=== PATIENT | female | born 1945 | race Caucasian/White ===

== ENCOUNTER 2021-11-17 11:44 | Inpatient (IN) | payer OTHER, MEDICARE ==
[2021-11-17 12:02] LABS: Actual Bicarbonate (HCO3a) 22.1 mEq/L (22-28); Analyzer IN Cardio ER; CO2 Tension 35.7 mmHg (35.0-45.0); Calcium, Ionized (arterial) 1.11 mmol/L (1.12-1.30); Carboxyhemoglobin (COHb) 0.3 gm% (0.0-3.0); Hemoglobin (Hb) 12.8 g/dL (12.0-16.0); O2 Tension (PaO2), arterial 239.2 mmHg (> 70.0); Potassium - ABG Lab 3.82 mmol/L (3.70-5.30); pH, Arterial 7.41 (7.35-7.45)
[2021-11-17 12:09] LABS: ALV-art Gradient 72.675 mmHg (0-20); Puncture Site RBA
[2021-11-17] MEDS ORDERED: fentaNYL Citrate/PF 2,000 MCG in Sodium Chloride 0.9% 60 ML IV SCH (12:15)
[2021-11-17 12:23] LABS: Hemoglobin 12.3 g/dL (12.0-16.0); Mean Corpuscular HGB CONC 32.6 g/dL (32.0-36.0); Mean Corpuscular Hemoglobin 30.1 pg (27.0-31.0); Mean Corpuscular Volume 92.4 fL (78.0-98.0); Mean Platelet Volume 9.2 fL (7.4-10.4); Platelet Count 164 thou/uL (130-400); RBC Distribution Width 12.2 % (11.5-14.5); Red Blood Cell (RBC) Count 4.08 mill/uL (4.20-5.40)
[2021-11-17 12:39] LABS: Band 36 % (5-11); MDiff Complete? YES; Metamyelocyte 3 % (0-0); Monocytes 3 % (0-10); Neutrophil 58 % (42-75); Platelet Morphology Comment Appears Adequate; RBC Morphology Normal
[2021-11-17 12:46] LABS: ALT (SGPT) 30 U/L (8-55); AST (SGOT) 40 U/L (5-34); Albumin 3.3 g/dL (3.4-4.8); Alkaline Phosphatase 96 U/L (40-110); Anion Gap 12 mmol/L (10-20); BUN (Urea Nitrogen) 35 mg/dL (9.8-20.1); Bilirubin, Total 0.4 mg/dL (0.2-1.2); Calc. Creatinine Clearance 0 mL/min (70-130); Calcium 8.3 mg/dL (7.8-10.44); Carbon Dioxide 23 mmol/L (23-31); Chloride 107 mmol/L (98-107); Estimated GFR 58; Globulin 2.4 g/dL (2.4-3.5); Glucose 159 mg/dL (83-110); Potassium 3.9 mmol/L (3.5-5.1); Protein, Total 5.7 g/dL (5.8-8.1); Sodium 138 mmol/L (136-145)
[2021-11-17] MEDS ORDERED: Ondansetron PF 4 MG/2 ML Vial IVP PRN (13:25)
[2021-11-17] MEDS ORDERED: Electrolyte Replacement Protocol 1 EACH IVPB ONE (13:28)
[2021-11-17] MEDS ORDERED: Ventilator Sedation Protocol 1 EACH FS SCH (13:30)
[2021-11-17] MEDS ORDERED: Chlorhexidine Gluconate 15 ML UDCUP SSP ONE (14:14)
[2021-11-17] MEDS ORDERED: Lidocaine 1% (PF) 30 ML VIAL ONE (14:14)
[2021-11-17] MEDS ORDERED: EPINEPHrine 1 MG/ML AMP ONE (14:14)
[2021-11-17] MEDS ORDERED: Bupivacaine/Epinephrine 0.25% 30 ML VIAL ONE (14:14)
[2021-11-17] MEDS ORDERED: Lidocaine 0.5%/Epinephrine 1:200,000 50 ml Vial ONE (14:21)
[2021-11-17] MEDS ORDERED: Fentanyl BOLUS 250 ML IVPB PRN (14:30)
[2021-11-17] MEDS ORDERED: Clindamycin/D5W 900 MG in Premix Bag 1 BAG IVPB SCH (14:30)
[2021-11-17] MEDS ORDERED: DISCONTINUE PREVIOUS NARCOTIC PAIN MEDICATIONS AND BENZODIAZEPINES FS SCH (14:30)
[2021-11-17] MEDS ORDERED: Propofol BOLUS 1,000 MG/100 ML VIAL IV PRN (14:30)
[2021-11-17] MEDS ORDERED: fentaNYL Citrate/PF 100 MCG/2 ML SYRINGE ONE (14:34)
[2021-11-17] MEDS ORDERED: Midazolam HCl 2 mg/2 ml Vial ONE (14:34)
[2021-11-17] MEDS ORDERED: Lidocaine 1% PF 5 ML VIAL ONE (14:48)
[2021-11-17] MEDS ORDERED: PROPOFOL 200 MG/20 ML VIAL ONE (14:48)
[2021-11-17] MEDS ORDERED: Rocuronium Bromide 10 MG/ML (10ML VIAL) ONE (14:48)
[2021-11-17] MEDS ORDERED: Phenylephrine 10 MG/ML VIAL ONE (14:48)
[2021-11-17] MEDS ORDERED: Esmolol 100 MG/10 ML VIAL ONE (14:48)
[2021-11-17] MEDS ORDERED: Clindamycin/D5W 900 mg/50 ml Premix Bag ONE (15:06)
[2021-11-17] MEDS ORDERED: Ketamine 50 MG/ML (10ML VIAL) ONE (15:49)
[2021-11-17] MEDS: Lactated Ringer's 1,000 ML IV SCH ×2 (16:17→23:53)
[2021-11-17] MEDS: cefTRIAXone\\ROCEPHIN 2 GM in Sodium Chloride 0.9% 100 ML IVPB SCH (16:17)
[2021-11-17] MEDS: Propofol 1,000 MG/100 ML VIAL IV PRN (16:18)
[2021-11-17] MEDS: Clindamycin/D5W 900 MG in Premix Bag 1 BAG IVPB SCH (22:14)
[2021-11-17] MEDS: Chlorhexidine Gluconate 15 ML UDCUP SSP SCH (22:14)
[2021-11-17] MEDS: Famotidine/PF 20 mg/2ml Vial SLOW IVP SCH (22:14)
[2021-11-18] MEDS: Propofol 1,000 MG/100 ML VIAL IV PRN ×4 (00:29→23:16)
[2021-11-18] MEDS: Lactated Ringer's 1,000 ML IV SCH ×3 (00:29→17:46)
[2021-11-18 04:25] LABS: Anion Gap 15 mmol/L (10-20); BUN (Urea Nitrogen) 30 mg/dL (9.8-20.1); Calc. Creatinine Clearance 65 mL/min (70-130); Calcium 8.8 mg/dL (7.8-10.44); Carbon Dioxide 21 mmol/L (23-31); Chloride 109 mmol/L (98-107); Estimated GFR 77; Glucose 124 mg/dL (83-110); Potassium 3.5 mmol/L (3.5-5.1); Sodium 141 mmol/L (136-145)
[2021-11-18 04:46] LABS: Band 35 % (5-11); Hemoglobin 11.1 g/dL (12.0-16.0); Lymphocytes 3 % (21-51); MDiff Complete? YES; Mean Corpuscular HGB CONC 32.7 g/dL (32.0-36.0); Mean Corpuscular Hemoglobin 30.3 pg (27.0-31.0); Mean Corpuscular Volume 92.8 fL (78.0-98.0); Mean Platelet Volume 9.4 fL (7.4-10.4); Monocytes 3 % (0-10); Neutrophil 59 % (42-75); Platelet Count 153 thou/uL (130-400); Red Blood Cell (RBC) Count 3.66 mill/uL (4.20-5.40); White Blood Cell (WBC) Count 22.1 thou/uL (4.8-10.8)
[2021-11-18] MEDS: Morphine 4 MG/ML VIAL SLOW IVP PRN ×2 (04:53→20:20)
[2021-11-18 05:43] LABS: Magnesium 2.3 mg/dL (1.6-2.6)
[2021-11-18] MEDS: Clindamycin/D5W 900 MG in Premix Bag 1 BAG IVPB SCH ×3 (06:37→21:01)
[2021-11-18 07:11] LABS: Actual Bicarbonate (HCO3a) 21.2 mEq/L (22-28); Base Excess (BEa) -2.3 mEq/L (-2.0 to +3.0); CO2 Tension 32.1 mmHg (35.0-45.0); Calcium, Ionized (arterial) 1.11 mmol/L (1.12-1.30); Carboxyhemoglobin (COHb) 0.3 gm% (0.0-3.0); Hemoglobin (Hb) 11.7 g/dL (12.0-16.0); O2 Tension (PaO2), arterial 146.5 mmHg (> 70.0); Potassium - ABG Lab 3.49 mmol/L (3.70-5.30); Puncture Site RRA; pH, Arterial 7.44 (7.35-7.45)
[2021-11-18 07:12] LABS: ALV-art Gradient 98.575 mmHg (0-20)
[2021-11-18] MEDS: Famotidine/PF 20 mg/2ml Vial SLOW IVP SCH ×2 (08:24→21:01)
[2021-11-18] MEDS: Enoxaparin Sodium 40 MG/0.4 ML SYRINGE SC SCH (08:24)
[2021-11-18] MEDS: Chlorhexidine Gluconate 15 ML UDCUP SSP SCH ×2 (08:24→21:01)
[2021-11-18] MEDS ORDERED: Iopamidol-370 76% 500 ML 1 ML ONE (14:04)
[2021-11-18] MEDS: cefTRIAXone\\ROCEPHIN 2 GM in Sodium Chloride 0.9% 100 ML IVPB SCH (16:18)
[2021-11-18] MEDS ORDERED: Metoprolol Tartrate 25 MG TAB PO SCH (21:45)
[2021-11-18] MEDS ORDERED: Fentanyl CADD 100 ML ONE (21:51)
[2021-11-18] MEDS: Fentanyl CADD 100 ML IV SCH (21:59)
[2021-11-19] MEDS: Propofol 1,000 MG/100 ML VIAL IV PRN ×3 (03:57→20:00)
[2021-11-19] MEDS: Clindamycin/D5W 900 MG in Premix Bag 1 BAG IVPB SCH ×3 (05:48→23:58)
[2021-11-19 06:50] LABS: #Basophils 0.1 thou/uL (0.0-0.2); #Lymphocytes 1.1 thou/uL (1.20-3.40); #Monocytes 1.2 thou/uL (0.11-0.59); %Basophils 0.3 % (0.0-1.0); %Eosinophils 0.1 % (0.0-10.0); %Monocytes 5.3 % (0.0-10.0); %Neutrophils 89.4 % (42.0-75.0); Hemoglobin 11.5 g/dL (12.0-16.0); Mean Corpuscular HGB CONC 31.6 g/dL (32.0-36.0); Mean Corpuscular Hemoglobin 30.5 pg (27.0-31.0); Mean Corpuscular Volume 96.5 fL (78.0-98.0); Mean Platelet Volume 10.7 fL (7.4-10.4); Platelet Count 147 thou/uL (130-400); RBC Distribution Width 12.6 % (11.5-14.5); Red Blood Cell (RBC) Count 3.76 mill/uL (4.20-5.40); White Blood Cell (WBC) Count 22.4 thou/uL (4.8-10.8)
[2021-11-19 07:27] LABS: Calcium 8.7 mg/dL (7.8-10.44); Chloride 110 mmol/L (98-107); Potassium 4.2 mmol/L (3.5-5.1); Sodium 140 mmol/L (136-145)
[2021-11-19 07:28] LABS: Glucose 64 mg/dL (83-110)
[2021-11-19 07:29] LABS: Anion Gap 19 mmol/L (10-20); Carbon Dioxide 15 mmol/L (23-31)
[2021-11-19 07:31] LABS: Calc. Creatinine Clearance 75 mL/min (70-130); Estimated GFR 89
[2021-11-19 07:32] LABS: BUN (Urea Nitrogen) 27 mg/dL (9.8-20.1)
[2021-11-19 07:38] LABS: Base Excess (BEa) -2.1 mEq/L (-2.0 to +3.0); CO2 Tension 35.6 mmHg (35.0-45.0); Calcium, Ionized (arterial) 1.18 mmol/L (1.12-1.30); Carboxyhemoglobin (COHb) 0.2 gm% (0.0-3.0); Hemoglobin (Hb) 12.8 g/dL (12.0-16.0); Potassium - ABG Lab 3.28 mmol/L (3.70-5.30); pH, Arterial 7.41 (7.35-7.45)
[2021-11-19 07:45] LABS: Puncture Site LRA
[2021-11-19] MEDS: Sodium Chloride 0.45% 1,000 ML IV SCH ×2 (08:54→22:55)
[2021-11-19] MEDS: Famotidine/PF 20 mg/2ml Vial SLOW IVP SCH ×2 (08:56→22:53)
[2021-11-19] MEDS: Chlorhexidine Gluconate 15 ML UDCUP SSP SCH ×2 (08:56→22:53)
[2021-11-19] MEDS: Enoxaparin Sodium 40 MG/0.4 ML SYRINGE SC SCH (08:56)
[2021-11-19] MEDS: Metoprolol Tartrate 25 MG TAB PO SCH ×3 (08:56→23:18)
[2021-11-19] MEDS: cefTRIAXone\\ROCEPHIN 2 GM in Sodium Chloride 0.9% 100 ML IVPB SCH (14:30)
[2021-11-19] MEDS ORDERED: Bacitracin Zinc Ointment 30 gm TUBE ONE (17:28)
[2021-11-19] MEDS ORDERED: Chlorhexidine Gluconate 15 ML UDCUP SSP ONE (17:28)
[2021-11-19] MEDS ORDERED: Bupivacaine/Epinephrine 0.25% 30 ML VIAL ONE (17:28)
[2021-11-19] MEDS ORDERED: Phenylephrine 10 MG/ML VIAL ONE (18:05)
[2021-11-19] MEDS ORDERED: Rocuronium Bromide 10 MG/ML (10ML VIAL) ONE (18:05)
[2021-11-19] MEDS ORDERED: ePHEDrine 50 MG/ML VIAL ONE (18:05)
[2021-11-19] MEDS ORDERED: fentaNYL Citrate/PF 100 MCG/2 ML SYRINGE ONE (18:15)
[2021-11-19] MEDS: Midazolam HCl 2 mg/2 ml Vial SLOW IVP PRN (20:33)
[2021-11-20] MEDS: Fentanyl CADD 100 ML IV SCH (04:00)
[2021-11-20 04:17] LABS: #Eosinphils 0.1 thou/uL (0.0-0.7); #Lymphocytes 1.3 thou/uL (1.20-3.40); #Monocytes 0.9 thou/uL (0.11-0.59); #Neutrophils 7.5 thou/uL (1.40-6.50); %Basophils 0.5 % (0.0-1.0); %Eosinophils 0.9 % (0.0-10.0); %Lymphocytes 13.1 % (21.0-51.0); %Neutrophils 76.5 % (42.0-75.0); Hemoglobin 12.3 g/dL (12.0-16.0); Mean Corpuscular Hemoglobin 30.5 pg (27.0-31.0); Mean Corpuscular Volume 92.5 fL (78.0-98.0); Mean Platelet Volume 9.5 fL (7.4-10.4); Platelet Count 138 thou/uL (130-400); RBC Distribution Width 12.3 % (11.5-14.5); Red Blood Cell (RBC) Count 4.04 mill/uL (4.20-5.40); White Blood Cell (WBC) Count 9.8 thou/uL (4.8-10.8)
[2021-11-20] MEDS: Midazolam HCl 2 mg/2 ml Vial SLOW IVP PRN (04:25)
[2021-11-20] MEDS: Propofol 1,000 MG/100 ML VIAL IV PRN ×3 (04:25→18:06)
[2021-11-20 04:33] LABS: Anion Gap 15 mmol/L (10-20); BUN (Urea Nitrogen) 24 mg/dL (9.8-20.1); Calc. Creatinine Clearance 80 mL/min (70-130); Calcium 8.6 mg/dL (7.8-10.44); Carbon Dioxide 19 mmol/L (23-31); Chloride 108 mmol/L (98-107); Estimated GFR 92; Glucose 75 mg/dL (83-110); Potassium 3.3 mmol/L (3.5-5.1); Sodium 139 mmol/L (136-145)
[2021-11-20] MEDS: Clindamycin/D5W 900 MG in Premix Bag 1 BAG IVPB SCH ×3 (06:31→21:43)
[2021-11-20 07:38] LABS: Actual Bicarbonate (HCO3a) 24.2 mEq/L (22-28); Base Excess (BEa) -0.3 mEq/L (-2.0 to +3.0); CO2 Tension 39.3 mmHg (35.0-45.0); Calcium, Ionized (arterial) 1.11 mmol/L (1.12-1.30); Carboxyhemoglobin (COHb) 0.2 gm% (0.0-3.0); Hemoglobin (Hb) 11.7 g/dL (12.0-16.0); O2 Tension (PaO2), arterial 105.3 mmHg (> 70.0); Potassium - ABG Lab 3.03 mmol/L (3.70-5.30); pH, Arterial 7.41 (7.35-7.45)
[2021-11-20] MEDS ORDERED: Potassium Chloride 40 MEQ in Premix Bag 1 BAG IVPB SCH (07:45)
[2021-11-20 07:49] LABS: Puncture Site RRA
[2021-11-20 07:51] LABS: ALV-art Gradient 59.475 mmHg (0-20)
[2021-11-20] MEDS: Famotidine/PF 20 mg/2ml Vial SLOW IVP SCH ×2 (09:08→20:52)
[2021-11-20] MEDS: Chlorhexidine Gluconate 15 ML UDCUP SSP SCH ×2 (09:08→20:52)
[2021-11-20] MEDS: Enoxaparin Sodium 40 MG/0.4 ML SYRINGE SC SCH (09:08)
[2021-11-20] MEDS: Metoprolol Tartrate 25 MG TAB PO SCH ×3 (09:12→20:52)
[2021-11-20] MEDS: Sodium Chloride 0.45% 1,000 ML IV SCH (13:50)
[2021-11-20] MEDS: cefTRIAXone\\ROCEPHIN 2 GM in Sodium Chloride 0.9% 100 ML IVPB SCH (13:51)
[2021-11-20] MEDS ORDERED: Dextrose 5 %-0.45 % NaCl 1,000 ML IV SCH (14:30)
[2021-11-20] MEDS: Senokot S 8.6-50 MG TAB PER TUBE SCH (20:52)
[2021-11-21] MEDS ORDERED: Dextrose 5 %-0.45 % NaCl 1,000 ML IV SCH (00:01)
[2021-11-21] MEDS: Propofol 1,000 MG/100 ML VIAL IV PRN ×2 (01:00→06:29)
[2021-11-21 03:40] LABS: Anion Gap 12 mmol/L (10-20); BUN (Urea Nitrogen) 16 mg/dL (9.8-20.1); Calc. Creatinine Clearance 83 mL/min (70-130); Calcium 8.2 mg/dL (7.8-10.44); Carbon Dioxide 22 mmol/L (23-31); Chloride 108 mmol/L (98-107); Estimated GFR 93; Glucose 145 mg/dL (83-110); Magnesium 2.1 mg/dL (1.6-2.6); Potassium 3.4 mmol/L (3.5-5.1); Sodium 139 mmol/L (136-145)
[2021-11-21 03:53] LABS: Band 4 % (5-11); Hemoglobin 10.5 g/dL (12.0-16.0); Hypochromia SLIGHT = 6-15 cells (100X) (0-5/hpf); Lymphocytes 20 % (21-51); MDiff Complete? YES; Mean Corpuscular HGB CONC 33.4 g/dL (32.0-36.0); Mean Corpuscular Hemoglobin 31.1 pg (27.0-31.0); Mean Corpuscular Volume 93.1 fL (78.0-98.0); Mean Platelet Volume 9.5 fL (7.4-10.4); Monocytes 20 % (0-10); Neutrophil 56 % (42-75); Platelet Count 148 thou/uL (130-400); Platelet Morphology Comment Appears Adequate; RBC Distribution Width 12.3 % (11.5-14.5); Red Blood Cell (RBC) Count 3.39 mill/uL (4.20-5.40); White Blood Cell (WBC) Count 7.6 thou/uL (4.8-10.8)
[2021-11-21] MEDS: Sodium Chloride 0.45% 1,000 ML IV SCH ×2 (06:13→13:12)
[2021-11-21] MEDS: Clindamycin/D5W 900 MG in Premix Bag 1 BAG IVPB SCH ×3 (06:29→22:43)
[2021-11-21] MEDS: Senokot S 8.6-50 MG TAB PER TUBE SCH ×3 (06:36→20:47)
[2021-11-21] MEDS ORDERED: Fentanyl CADD 100 ML ONE (06:45)
[2021-11-21] MEDS: Fentanyl CADD 100 ML IV SCH (07:01)
[2021-11-21] MEDS: Enoxaparin Sodium 40 MG/0.4 ML SYRINGE SC SCH (08:55)
[2021-11-21] MEDS: Famotidine/PF 20 mg/2ml Vial SLOW IVP SCH ×2 (08:55→20:52)
[2021-11-21] MEDS: Chlorhexidine Gluconate 15 ML UDCUP SSP SCH ×2 (08:55→20:52)
[2021-11-21] MEDS: Polyethylene Glycol 3350 17 GM Packet PER TUBE SCH (10:34)
[2021-11-21] MEDS: Metoprolol Tartrate 25 MG TAB PO SCH ×2 (10:34→20:52)
[2021-11-21] MEDS: Potassium Chloride 20 MEQ TAB PO SCH ×2 (10:37→22:44)
[2021-11-21] MEDS ORDERED: Dexamethasone 10 MG in Sodium Chloride 0.9% 50 ML IVPB SCH (11:45)
[2021-11-21] MEDS ORDERED: Amlodipine 5 MG TAB PER TUBE SCH (12:30)
[2021-11-21] MEDS ORDERED: Dexamethasone 10 MG/ML VIAL SLOW IVP SCH (12:45)
[2021-11-21] MEDS: cefTRIAXone\\ROCEPHIN 2 GM in Sodium Chloride 0.9% 100 ML IVPB SCH (14:37)
[2021-11-21] MEDS: Dexamethasone 4 mg/ml Vial SLOW IVP SCH ×2 (17:46→23:29)
[2021-11-22 03:54] LABS: Anion Gap 13 mmol/L (10-20); BUN (Urea Nitrogen) 16 mg/dL (9.8-20.1); Calc. Creatinine Clearance 89 mL/min (70-130); Calcium 8.7 mg/dL (7.8-10.44); Carbon Dioxide 24 mmol/L (23-31); Chloride 106 mmol/L (98-107); Estimated GFR 94; Glucose 165 mg/dL (83-110); Potassium 4.7 mmol/L (3.5-5.1); Sodium 138 mmol/L (136-145)
[2021-11-22] MEDS: Sodium Chloride 0.45% 1,000 ML IV SCH (03:58)
[2021-11-22 04:12] LABS: Hemoglobin 10.7 g/dL (12.0-16.0); Mean Corpuscular HGB CONC 32.4 g/dL (32.0-36.0); Mean Corpuscular Hemoglobin 30.2 pg (27.0-31.0); Mean Corpuscular Volume 93.2 fL (78.0-98.0); Mean Platelet Volume 9.8 fL (7.4-10.4); Platelet Count 159 thou/uL (130-400); RBC Distribution Width 12.1 % (11.5-14.5); Red Blood Cell (RBC) Count 3.53 mill/uL (4.20-5.40); White Blood Cell (WBC) Count 9.7 thou/uL (4.8-10.8)
[2021-11-22 04:13] LABS: Band 4 % (5-11); Lymphocytes 9 % (21-51); MDiff Complete? YES; Metamyelocyte 1 % (0-0); Neutrophil 86 % (42-75); Platelet Morphology Comment Appears Adequate; RBC Morphology Normal
[2021-11-22] MEDS: Clindamycin/D5W 900 MG in Premix Bag 1 BAG IVPB SCH ×3 (06:17→21:39)
[2021-11-22] MEDS: Dexamethasone 4 mg/ml Vial SLOW IVP SCH ×3 (06:18→18:30)
[2021-11-22] MEDS: Amlodipine 5 MG TAB PER TUBE SCH (08:36)
[2021-11-22] MEDS: Enoxaparin Sodium 40 MG/0.4 ML SYRINGE SC SCH (08:36)
[2021-11-22] MEDS: Chlorhexidine Gluconate 15 ML UDCUP SSP SCH ×2 (08:37→21:38)
[2021-11-22] MEDS: Metoprolol Tartrate 25 MG TAB PO SCH ×2 (08:37→21:39)
[2021-11-22] MEDS: Polyethylene Glycol 3350 17 GM Packet PER TUBE SCH (08:38)
[2021-11-22] MEDS: Senokot S 8.6-50 MG TAB PER TUBE SCH ×2 (08:39→21:39)
[2021-11-22] MEDS: Famotidine/PF 20 mg/2ml Vial SLOW IVP SCH ×2 (08:47→21:38)
[2021-11-22] MEDS: Potassium Bicarbonate/Cit Ac 20 MEQ TAB PER TUBE SCH ×3 (11:57→21:39)
[2021-11-22] MEDS: cefTRIAXone\\ROCEPHIN 2 GM in Sodium Chloride 0.9% 100 ML IVPB SCH (15:00)
[2021-11-22] MEDS: Fentanyl CADD 100 ML IV SCH (19:18)
[2021-11-22] MEDS: Potassium Chloride 20 MEQ TAB PO SCH (21:25)
[2021-11-23] MEDS: Dexamethasone 4 mg/ml Vial SLOW IVP SCH (00:48)
[2021-11-23] MEDS: Sodium Chloride 0.45% 1,000 ML IV SCH (04:46)
[2021-11-23] MEDS: Clindamycin/D5W 900 MG in Premix Bag 1 BAG IVPB SCH ×3 (05:04→21:33)
[2021-11-23 05:13] LABS: Mean Corpuscular HGB CONC 32.5 g/dL (32.0-36.0); Mean Corpuscular Volume 92.4 fL (78.0-98.0); Mean Platelet Volume 9.8 fL (7.4-10.4); Platelet Count 217 thou/uL (130-400); RBC Distribution Width 12.3 % (11.5-14.5); Red Blood Cell (RBC) Count 3.67 mill/uL (4.20-5.40); White Blood Cell (WBC) Count 14.7 thou/uL (4.8-10.8)
[2021-11-23 05:26] LABS: Anion Gap 12 mmol/L (10-20); BUN (Urea Nitrogen) 24 mg/dL (9.8-20.1); Calc. Creatinine Clearance 85 mL/min (70-130); Calcium 8.7 mg/dL (7.8-10.44); Carbon Dioxide 26 mmol/L (23-31); Chloride 105 mmol/L (98-107); Estimated GFR 93; Glucose 147 mg/dL (83-110); Magnesium 2.3 mg/dL (1.6-2.6); Potassium 4.9 mmol/L (3.5-5.1); Sodium 138 mmol/L (136-145)
[2021-11-23 05:39] LABS: Band 11 % (5-11); Lymphocytes 6 % (21-51); MDiff Complete? YES; Monocytes 9 % (0-10); Neutrophil 74 % (42-75)
[2021-11-23] MEDS: Enoxaparin Sodium 40 MG/0.4 ML SYRINGE SC SCH (09:06)
[2021-11-23] MEDS: Famotidine/PF 20 mg/2ml Vial SLOW IVP SCH ×2 (09:06→21:30)
[2021-11-23] MEDS: Amlodipine 5 MG TAB PER TUBE SCH (09:06)
[2021-11-23] MEDS: Chlorhexidine Gluconate 15 ML UDCUP SSP SCH ×2 (09:06→21:32)
[2021-11-23] MEDS: Polyethylene Glycol 3350 17 GM Packet PER TUBE SCH (09:07)
[2021-11-23] MEDS: Senokot S 8.6-50 MG TAB PER TUBE SCH ×2 (09:07→21:34)
[2021-11-23] MEDS: Metoprolol Tartrate 25 MG TAB PO SCH ×2 (09:07→21:32)
[2021-11-23] MEDS: Loperamide HCl 2 MG CAP PO PRN ×2 (12:18→21:37)
[2021-11-23] MEDS ORDERED: LACTINEX 1 TAB PO SCH (13:00)
[2021-11-23] MEDS: Floranex 1 GM Packet PO SCH ×3 (13:42→21:38)
[2021-11-23] MEDS: cefTRIAXone\\ROCEPHIN 2 GM in Sodium Chloride 0.9% 100 ML IVPB SCH (14:37)
[2021-11-23 14:38] LABS: Fungus Stain Final report (.)
[2021-11-23 14:41] VITALS: BMI 23.3
[2021-11-24] MEDS: Sodium Chloride 0.45% 1,000 ML IV SCH (03:51)
[2021-11-24] MEDS: Clindamycin/D5W 900 MG in Premix Bag 1 BAG IVPB SCH ×3 (05:04→22:06)
[2021-11-24 05:36] LABS: #Eosinphils 0.1 thou/uL (0.0-0.7); #Lymphocytes 1.8 thou/uL (1.20-3.40); #Monocytes 0.8 thou/uL (0.11-0.59); %Eosinophils 0.7 % (0.0-10.0); %Lymphocytes 20.8 % (21.0-51.0); %Monocytes 8.7 % (0.0-10.0); %Neutrophils 69.8 % (42.0-75.0); Hemoglobin 11.1 g/dL (12.0-16.0); Mean Corpuscular HGB CONC 33.4 g/dL (32.0-36.0); Mean Corpuscular Hemoglobin 30.3 pg (27.0-31.0); Mean Corpuscular Volume 90.8 fL (78.0-98.0); Mean Platelet Volume 9.2 fL (7.4-10.4); Platelet Count 235 thou/uL (130-400); RBC Distribution Width 12.2 % (11.5-14.5); Red Blood Cell (RBC) Count 3.65 mill/uL (4.20-5.40); White Blood Cell (WBC) Count 8.6 thou/uL (4.8-10.8)
[2021-11-24 05:54] LABS: Anion Gap 13 mmol/L (10-20); BUN (Urea Nitrogen) 21 mg/dL (9.8-20.1); Calc. Creatinine Clearance 76 mL/min (70-130); Calcium 8.9 mg/dL (7.8-10.44); Carbon Dioxide 27 mmol/L (23-31); Chloride 107 mmol/L (98-107); Estimated GFR 91; Glucose 79 mg/dL (83-110); Potassium 3.8 mmol/L (3.5-5.1); Sodium 143 mmol/L (136-145)
[2021-11-24] MEDS: Floranex 1 GM Packet PO SCH ×4 (08:08→20:34)
[2021-11-24] MEDS: Amlodipine 5 MG TAB PER TUBE SCH (08:09)
[2021-11-24] MEDS: Enoxaparin Sodium 40 MG/0.4 ML SYRINGE SC SCH (08:09)
[2021-11-24] MEDS: Chlorhexidine Gluconate 15 ML UDCUP SSP SCH ×2 (08:09→20:32)
[2021-11-24] MEDS: Famotidine/PF 20 mg/2ml Vial SLOW IVP SCH ×2 (08:09→20:32)
[2021-11-24] MEDS: Metoprolol Tartrate 25 MG TAB PO SCH ×2 (08:10→20:32)
[2021-11-24] MEDS: Polyethylene Glycol 3350 17 GM Packet PER TUBE SCH (08:30)
[2021-11-24] MEDS: Senokot S 8.6-50 MG TAB PER TUBE SCH ×2 (08:31→22:05)
[2021-11-24] MEDS: Amlodipine 5 MG TAB PO SCH (09:38)
[2021-11-24] MEDS: Folic Acid 1 MG TAB PO SCH (09:47)
[2021-11-24] MEDS: Dextrose 5 % And 0.9 % NaCl 1,000 ML IV SCH (09:48)
[2021-11-24] MEDS: Acetaminophen 325 MG TAB PO PRN ×2 (11:05→17:15)
[2021-11-24 12:09] LABS: Fungus Stain Final report (.)
[2021-11-24] MEDS: cefTRIAXone\\ROCEPHIN 2 GM in Sodium Chloride 0.9% 100 ML IVPB SCH (14:44)
[2021-11-25] MEDS: Clindamycin/D5W 900 MG in Premix Bag 1 BAG IVPB SCH (05:17)
[2021-11-25] MEDS: Levothyroxine Sodium 100 MCG TAB PO SCH (05:18)
[2021-11-25 05:51] LABS: #Eosinphils 0.1 thou/uL (0.0-0.7); #Lymphocytes 1.2 thou/uL (1.20-3.40); #Monocytes 0.7 thou/uL (0.11-0.59); #Neutrophils 6.8 thou/uL (1.40-6.50); %Eosinophils 0.7 % (0.0-10.0); %Monocytes 7.6 % (0.0-10.0); %Neutrophils 77.7 % (42.0-75.0); Hemoglobin 11.2 g/dL (12.0-16.0); Mean Corpuscular HGB CONC 32.8 g/dL (32.0-36.0); Mean Corpuscular Hemoglobin 30.1 pg (27.0-31.0); Mean Corpuscular Volume 91.5 fL (78.0-98.0); Mean Platelet Volume 8.9 fL (7.4-10.4); Platelet Count 257 thou/uL (130-400); RBC Distribution Width 12.2 % (11.5-14.5); Red Blood Cell (RBC) Count 3.71 mill/uL (4.20-5.40); White Blood Cell (WBC) Count 8.8 thou/uL (4.8-10.8)
[2021-11-25 06:14] LABS: ALT (SGPT) 19 U/L (8-55); AST (SGOT) 17 U/L (5-34); Alkaline Phosphatase 85 U/L (40-110); Anion Gap 13 mmol/L (10-20); BUN (Urea Nitrogen) 12 mg/dL (9.8-20.1); Bilirubin, Direct 0.1 mg/dL (0.1-0.3); Bilirubin, Total 0.4 mg/dL (0.2-1.2); Calc. Creatinine Clearance 69 mL/min (70-130); Calcium 8.8 mg/dL (7.8-10.44); Carbon Dioxide 26 mmol/L (23-31); Chloride 107 mmol/L (98-107); Estimated GFR 86; Glucose 89 mg/dL (83-110); Potassium 3.5 mmol/L (3.5-5.1); Sodium 142 mmol/L (136-145)
[2021-11-25] MEDS: Floranex 1 GM Packet PO SCH ×4 (08:18→21:05)
[2021-11-25] MEDS: Amlodipine 5 MG TAB PO SCH (08:18)
[2021-11-25] MEDS: Famotidine/PF 20 mg/2ml Vial SLOW IVP SCH ×2 (08:19→21:06)
[2021-11-25] MEDS: Folic Acid 1 MG TAB PO SCH (08:19)
[2021-11-25] MEDS: Chlorhexidine Gluconate 15 ML UDCUP SSP SCH ×2 (08:19→21:06)
[2021-11-25] MEDS: Enoxaparin Sodium 40 MG/0.4 ML SYRINGE SC SCH (08:19)
[2021-11-25] MEDS: Metoprolol Tartrate 25 MG TAB PO SCH ×2 (08:19→21:06)
[2021-11-25] MEDS: Senokot S 8.6-50 MG TAB PER TUBE SCH ×2 (08:20→21:07)
[2021-11-25] MEDS: Polyethylene Glycol 3350 17 GM Packet PER TUBE SCH (08:20)
[2021-11-25] MEDS ORDERED: Folic Acid 1 MG TAB PO SCH (09:00)
[2021-11-25] MEDS ORDERED: Levothyroxine Sodium 100 MCG TAB PO SCH (09:00)
[2021-11-25] MEDS ORDERED: Non-Formulary Item 1 EACH (Amlodipine Besylate [Amlodipine Besylate] 2.5 MG Tablet) PO SCH (09:00)
[2021-11-25] MEDS: Loperamide HCl 2 MG CAP PO PRN (09:19)
[2021-11-25] MEDS: Dextrose 5 % And 0.9 % NaCl 1,000 ML IV SCH (09:54)
[2021-11-25] MEDS ORDERED: Cefadroxil Hydrate 500 mg/5 ml Suspenion PO SCH ×2 (12:15→21:00)
[2021-11-25] MEDS ORDERED: Cefadroxil Hydrate 250 mg/5 ml Suspensio PO SCH (12:15)
[2021-11-25] MEDS: Acetaminophen 325 MG TAB PO PRN (15:15)
[2021-11-25] MEDS: Cefadroxil Hydrate 250 mg/5 ml Suspensio PO SCH (21:05)
[2021-11-26] MEDS: Levothyroxine Sodium 100 MCG TAB PO SCH (04:51)
[2021-11-26] MEDS: HYDROcodone/Acetaminophen 5/325 mg Tablet PO PRN ×2 (04:51→13:19)
[2021-11-26 06:16] LABS: #Eosinphils 0.2 thou/uL (0.0-0.7); #Lymphocytes 1.8 thou/uL (1.20-3.40); #Monocytes 0.6 thou/uL (0.11-0.59); #Neutrophils 5.8 thou/uL (1.40-6.50); %Basophils 0.5 % (0.0-1.0); %Eosinophils 1.9 % (0.0-10.0); %Lymphocytes 20.9 % (21.0-51.0); %Monocytes 7.2 % (0.0-10.0); %Neutrophils 69.6 % (42.0-75.0); Hemoglobin 11.2 g/dL (12.0-16.0); Mean Corpuscular HGB CONC 33.5 g/dL (32.0-36.0); Mean Corpuscular Hemoglobin 31.1 pg (27.0-31.0); Mean Corpuscular Volume 92.9 fL (78.0-98.0); Mean Platelet Volume 8.9 fL (7.4-10.4); Platelet Count 257 thou/uL (130-400); RBC Distribution Width 12.1 % (11.5-14.5); Red Blood Cell (RBC) Count 3.61 mill/uL (4.20-5.40); White Blood Cell (WBC) Count 8.4 thou/uL (4.8-10.8)
[2021-11-26 06:40] LABS: Anion Gap 11 mmol/L (10-20); BUN (Urea Nitrogen) 11 mg/dL (9.8-20.1); Calc. Creatinine Clearance 68 mL/min (70-130); Calcium 8.4 mg/dL (7.8-10.44); Carbon Dioxide 28 mmol/L (23-31); Chloride 105 mmol/L (98-107); Estimated GFR 89; Glucose 88 mg/dL (83-110); Magnesium 2.1 mg/dL (1.6-2.6); Potassium 4.1 mmol/L (3.5-5.1); Sodium 140 mmol/L (136-145)
[2021-11-26] MEDS: Amlodipine 5 MG TAB PO SCH (09:38)
[2021-11-26] MEDS: Metoprolol Tartrate 25 MG TAB PO SCH (09:38)
[2021-11-26] MEDS: Famotidine/PF 20 mg/2ml Vial SLOW IVP SCH (09:39)
[2021-11-26] MEDS: Folic Acid 1 MG TAB PO SCH (09:39)
[2021-11-26] MEDS: Chlorhexidine Gluconate 15 ML UDCUP SSP SCH (09:39)
[2021-11-26] MEDS: Enoxaparin Sodium 40 MG/0.4 ML SYRINGE SC SCH (09:39)
[2021-11-26] MEDS: Senokot S 8.6-50 MG TAB PER TUBE SCH (09:40)
[2021-11-26] MEDS: Polyethylene Glycol 3350 17 GM Packet PER TUBE SCH (09:40)
[2021-11-26] MEDS: Floranex 1 GM Packet PO SCH ×3 (09:57→18:51)
[2021-11-26 11:50] VITALS: TEMP 97.9
[2021-11-26] MEDS: Cefadroxil Hydrate 250 mg/5 ml Suspensio PO SCH (13:19)
[2021-11-26 16:06] VITALS: BP 127/72
[2021-11-26] MEDS ORDERED: Cefadroxil Hydrate 250 mg/5 ml Suspensio PO SCH (21:00)
[2021-11-26] MEDS ORDERED: Cefadroxil Hydrate 500 mg/5 ml Suspenion PO SCH (21:00)
== END 2021-11-26 18:00 | DRG 853 ==
LOC: ERS 11:44 → CCU 12:53 → SURG A 11-23 16:49
PROVIDERS: ADMIT Internal Medicine; ATTEND Family Medicine
PROC: 0C9 Mouth and Throat, Drainage (ICD-10-PCS; principal; 2021-11-17)
PROC: 5A1955Z Respiratory Ventilation, Greater than 96 Consecutive Hours (ICD-10-PCS; 2021-11-17)
PROC: 0DH67UZ Insertion of Feeding Device into Stomach, Via Natural or Artificial Opening (ICD-10-PCS; 2021-11-17)
PROC: 3E0G76Z Introduction of Nutritional Substance into Upper GI, Via Natural or Artificial Opening (ICD-10-PCS; 2021-11-17)
PROC: 0W950ZZ Drainage of Lower Jaw, Open Approach (ICD-10-PCS; 2021-11-19)
DX: A41.9 Sepsis, unspecified organism (principal); J96.01 Acute respiratory failure with hypoxia; K12.2 Cellulitis and abscess of mouth; E87.2 Acidosis; Z20.822 Contact with and (suspected) exposure to COVID-19; E03.9 Hypothyroidism, unspecified; M06.9 Rheumatoid arthritis, unspecified; Z96.652 Presence of left artificial knee joint; K14.0 Glossitis; K11.20 Sialoadenitis, unspecified; R00.8 Other abnormalities of heart beat; I49.3 Ventricular premature depolarization; L40.9 Psoriasis, unspecified; E87.6 Hypokalemia; R74.01 Elevation of levels of liver transaminase levels; G89.29 Other chronic pain; Z90.710 Acquired absence of both cervix and uterus; Z88.2 Allergy status to sulfonamides; Z88.1 Allergy status to other antibiotic agents; Z78.1 Physical restraint status; Z79.890 Hormone replacement therapy
CPT/HCPCS: 36415; 36416; 36600; 70491; 71045; 80048; 80053; 80076; 82805; 83605; 83735; 85025; 87070; 87102; 87205; 87206; 93005; 93010; 93306; 94002; 94003; 96374; J0171; J0696; J1100; J1650; J2001; J2250; J2270; J2370; J2704; J3010; J3480; J3490; J7042; J7120; Q9967; S0028; U0003; U0005